=== PATIENT | male | born 1940 | race Caucasian/White ===

== ENCOUNTER 2017-08-03 20:35 | Inpatient (IN) | payer MEDICARE, OTHER ==
[~2017-08-03] VITALS: Ht 175.3 cm; Wt 71.9 kg
--- NOTE | ~2017-08-03 | PN ---
PATIENT:SUZAN LOU MEDICAL RECORD: [id number] LOCATION:DIDI Kee112 ADMISSION DATE: 08/03/17 PROGRESS NOTE DATE OF SERVICE: 08/10/2017 ADDENDUM Mr. Lou did undergo neuropsychological testing today. He scored a 12/30 on the [facility] Mental Status exam, which indicates a profound level of impairment and considerable dementia. TRANSINT:[id number] Voice Confirmation ID: [id number] DOCUMENT ID: [id number] ARELI LANDON III, MD at 0959 CC: [id number] DICTATION DATE: 08/10/17 1147 OUT PATIENT THERAPIST: 08/10/17 1503 ADM IN [facility] [address] [place] [address]
--- NOTE | ~2017-08-03 | DS ---
PATIENT:SUZAN MILLER :36 MEDICAL RECORD: [id number] DISCHARGE SUMMARY ADMISSION DATE: 08/03/17 DISCHARGE DATE: 08/23/17 DATE OF ADMISSION: 08/03/2017 DATE OF DISCHARGE: 08/23/2017 HISTORY OF PRESENT ILLNESS: This patient was referred from the Emergency Department at [facility] [place]. The patient had become increasingly depressed and actively suicidal according to his family. The patient had initially signed out against medical advice, but was brought back in. The family was very concerned that the patient would follow through and attempt to harm himself and therefore admission was requested. COURSE IN THE HOSPITAL: The patient was seen in consultation by Dr. Galloway. Dr. Galloway noted the presence of Parkinson disease, hypertension, hyperlipidemia, GERD, and osteoarthritis. The patient was treated conservatively from a psychiatric standpoint. He was placed on Effexor XR 150 mg daily for depressive symptoms. This was later changed to Lexapro 10 mg daily. The patient was also treated with Aricept 10 mg on a daily basis for his dementia symptoms. He was kept on a previous dose of Sinemet, Protonix, diltiazem, Zestril, Linzess, and Klonopin 0.5 mg b.i.d. Over the course of the hospitalization, the patient continued to show a great deal of confusion. He required frequent redirection because of this from time to time. He attempted to find a way out of the unit. On 08/20/2017, the patient had an unwitnessed fall in the day room. He subsequently complained of pain in the right hip and was found to have a right hip fracture. Orthopedics was consulted and decision was made to have the patient transferred for surgical intervention. FINAL DIAGNOSES: AXIS I: Alzheimer dementia with behavioral disturbance. AXIS II: No diagnosis. AXIS III: Acute closed right hip fracture, Parkinson disease, hypertension, osteoarthritis, and gastroesophageal reflux disease. AXIS IV: Moderate. AXIS V: 40. PLAN: The patient will be transferred to the surgical floor for surgical intervention for his hip fracture. TRANSINT:[id number] Voice Confirmation ID: [id number] DOCUMENT ID: [id number] ARELI LANDON III, MD at 1041 CC: [id number] DICTATION DATE: 09/03/17 1129 REPLENISHMENT ANALYST: 09/04/17 0949 DIS IN 08/23/[address] [facility] [address] [place] [address]
--- NOTE | ~2017-08-03 | PN ---
PATIENT:SUZAN MILLER MEDICAL RECORD: [id number] LOCATION:DIDI KennedyNithya112 ADMISSION DATE: 08/03/17 PROGRESS NOTE DATE OF SERVICE: 08/11/2017 SUBJECTIVE: The patient's case was discussed with staff. He has no new complaint. OBJECTIVE: The patient is in good behavioral control with limited insight about his condition. He was tested by Dr. Taina Boyer yesterday and scored 12/30 indicating a severe level of impairment. ASSESSMENT: No change in diagnoses. PLAN: Current medicines and therapies have been reviewed and will be maintained. Long-term prognosis is guarded. TRANSINT:[id number] Voice Confirmation ID: [id number] DOCUMENT ID: [id number] ROSALINO VARELA MD at 1341 CC: [id number] DICTATION DATE: 08/11/17 0933 FRAMER: 08/11/17 1446 ADM IN [place] [id number] [place] [id number]
--- NOTE | ~2017-08-03 | HP ---
PATIENT: SUZAN MILLER MEDICAL RECORD: [id number] ACCOUNT: [id number] LOCATION:DIDI Kee1126 : 36 ADMISSION DATE: 08/03/17 HISTORY AND PHYSICAL EXAMINATION INITIAL PSYCHIATRIC WORKUP IDENTIFYING DATA: This is the first [facility] admission for this 76-year-old white male. HISTORY OF PRESENT ILLNESS: This patient was seen twice yesterday at the Emergency Department at [facility]. His family had brought him in because he was becoming increasingly depressed and actively suicidal. On the initial visit to the Emergency Department, the patient had signed out against medical advice. Later in the day, he was brought back and on this occasion, agreed to admission at [facility]. The patient has a preexisting diagnosis of Alzheimer dementia as well as depression. He has already been treated with Aricept and Effexor. The patient also has a history of Parkinson disease. Family is quite concerned that the patient might try to harm himself. All firearms have been removed from the house. He is now admitted for stabilization and medication adjustment as indicated. PAST MEDICAL HISTORY: Parkinson disease, hypertension, GERD. FAMILY HISTORY: Noncontributory. SOCIAL HISTORY: The patient is single. His sister is actively involved in his care. No substance abuse issues noted. ALLERGIES: INCLUDE BETA-BLOCKERS. MEDICATIONS: At the time of admission included Aricept 10 mg q.h.s., Effexor XR 150 mg daily, diltiazem 240 mg daily, Sinemet 25/100 t.i.d., and Protonix 40 mg daily. MENTAL STATUS: On interview, the patient is clearly quite confused. His appearance is rather disheveled. He is dressed in hospital scrubs. His mood is somewhat anxious and perplexed. Affect is constricted. Speech is low in volume and slow in production and rate. The patient exhibits a poverty of content. Content of thought is strongly positive for recent suicidal ideation. On sensorium testing, the patient is oriented only to person. He does not realize that he is in [place] and does not know the name of this hospital. Remote, intermediate, and short-term recall all show very significant impairment. Insight is very limited. DIAGNOSTIC IMPRESSION: AXIS I: Alzheimer dementia with behavioral disturbance, secondary depression. AXIS II: No diagnosis. AXIS III: Parkinson disease, hypertension, and gastroesophageal reflux disease. AXIS IV: Severe. AXIS V: 38. HISTORY AND PHYSICAL [id number] SUZAN MILLER PLAN: 1. The patient is admitted for further medical and psychological workup. 2. Diet and activities as tolerated. 3. Coordinate with family regarding aftercare. TRANSINT:[id number] Voice Confirmation ID: [id number] DOCUMENT ID: [id number] ARELI LANDON III, MD at 0706 CC: [id number] DICTATION DATE: 08/04/17829 HUNTER SKIN DIVER: 08/04/17 1255 ADM IN [facility] [address] [place] [address]
--- NOTE | ~2017-08-03 | PN ---
PATIENT:SUZAN MILLER MEDICAL RECORD: [id number] LOCATION:DIDI Zimmerman ADMISSION DATE: 08/03/17 PROGRESS NOTE DATE OF SERVICE: 08/17/2017 SUBJECTIVE: No new complaint. OBJECTIVE: Staff has met with the patient's family. It appears that they will opt for placement at the [facility]. The patient has been doing well. No behavioral disturbance at all. On exam, mood is euthymic. Affect is very constricted. Speech is terse. Content of thought is negative for overt psychosis. Sensorium shows no change. ASSESSMENT: No change in diagnosis. PLAN: 1. Continue current medication. 2. Continue supportive therapy. TRANSINT:[id number] Voice Confirmation ID: [id number] DOCUMENT ID: [id number] ARELI LANDON III, MD at 0530 CC: [id number] DICTATION DATE: 08/17/17 1157 RADIO TIME SALESPERSON: 08/17/17 1302 ADM IN [facility] [address] [place] [address]
--- NOTE | ~2017-08-03 | PN ---
PATIENT:SUZAN MILLER MEDICAL RECORD: [id number] LOCATION:DIDI Zimmerman ADMISSION DATE: 08/03/17 PROGRESS NOTE DATE OF SERVICE: 08/06/2017 SUBJECTIVE: The patient states "I don't know who I'm and I don't know where I'm." On exam, the patient is perplexed and somewhat anxious. He states that he did not know he was in a hospital. When he was told that he was at [facility] in [facility], he said "Oh I live close by." However, the patient was unable to relate whether or not he had any relatives in town. He could not recall any details of the circumstances under which he was brought to the hospital. The patient's mood is anxious. Affect is rather brittle. Speech is tangential. Content of thought exhibits some grandiose ideation. The patient states that he has a quarter of a million dollars and that he does not know what to do with it. On sensorium testing, as mentioned, the patient is oriented clearly only to person. He continues to show global memory impairment. ASSESSMENT: No change in diagnosis. PLAN: 1. We will ask Dr. Boyer to evaluate. 2. We will continue current medication. 3. Continue supportive therapy. TRANSINT:[id number] Voice Confirmation ID: [id number] DOCUMENT ID: [id number] ARELI LANDON III, MD at 0814 CC: [id number] DICTATION DATE: 08/06/17 1103 EMERGENCY ROOM CLERK: 08/06/17 1240 ADM IN [facility] [address] [place] [address]
--- NOTE | ~2017-08-03 | PN ---
PATIENT:SUZAN MILLER MEDICAL RECORD: [id number] LOCATION:DIDI Zimmerman ADMISSION DATE: 08/03/17 PROGRESS NOTE DATE OF SERVICE: 08/22/2017 SUBJECTIVE: No new complaint. OBJECTIVE: The patient is stable. Family is supportive of the decision to have him remain on the senior living unit. The sister is unsure as to whether she wants to proceed with surgery. The patient has not been aggressive. On exam, mood is slightly anxious. Affect is shallow. Speech is tangential. Content of thought is negative for overt psychosis. Sensorium shows no change. ASSESSMENT: No change in diagnosis. PLAN: 1. Continue current medication. 2. Continue supportive therapy. TRANSINT:[id number] Voice Confirmation ID: [id number] DOCUMENT ID: [id number] ARELI LANDON III, MD at 1014 CC: [id number] DICTATION DATE: 08/22/17 1145 QUALITY IMPROVEMENT COORDINATOR: 08/22/17 1234 DIS IN 08/23/17 [place] [id number] [place] [address]
--- NOTE | ~2017-08-03 | PN ---
PATIENT:SUZAN MILLER MEDICAL RECORD: [id number] LOCATION:DIDI Zimmerman ADMISSION DATE: 08/03/17 PROGRESS NOTE DATE OF SERVICE: 08/08/2017 SUBJECTIVE: No new complaint. OBJECTIVE: Additional history was obtained by case management. The patient evidently had been an alcoholic for a number of years and had at times an aggressive personality. Family states that in fact since he has developed dementia, he is less hostile than he had been when he was younger. However, he is obviously extremely confused. The family is interested in pursuing placement. On exam, mood is slightly anxious. Affect is very shallow. Speech is rambling and tangential. Content of thought is negative for overt psychosis. Sensorium shows no improvement. ASSESSMENT: No change in diagnosis. PLAN: 1. Maintain current medication. 2. Continue supportive therapy. TRANSINT:[id number] Voice Confirmation ID: [id number] DOCUMENT ID: [id number] ARELI LANDON III, MD at 0847 CC: [id number] DICTATION DATE: 08/08/17 1113 AIR DEFENCE OFFICER: 08/08/17 1354 ADM IN [facility] [address] [place] [address]
--- NOTE | ~2017-08-03 | PN ---
PATIENT:SUZAN MILLER MEDICAL RECORD: [id number] LOCATION:DIDI Zimmerman ADMISSION DATE: 08/03/17 PROGRESS NOTE DATE OF SERVICE: 08/21/2017 SUBJECTIVE: No new complaint. OBJECTIVE: The patient suffered a hip fracture on the right side yesterday. Evidently, he slipped and fell in the day room. The fall was not observed by staff, but imaging studies did confirm an acute fracture. Orthopedics has been made aware of the situation and the patient will likely be transferred for surgery within 48 hours. On exam, mood is slightly anxious. The patient denies pain at the moment. Affect remains brittle. Speech is tangential and rambling. Content of thought exhibits delusional ideation as before. Sensorium is unchanged. ASSESSMENT: No change in diagnosis. PLAN: 1. We will continue to monitor the patient quite carefully here to prevent further falls. 2. Continue current medication. 3. Continue supportive therapy. TRANSINT:[id number] Voice Confirmation ID: [id number] DOCUMENT ID: [id number] ARELI LANDON III, MD at 1048 CC: [id number] DICTATION DATE: 08/21/17 1208 GUN TESTER: 08/21/17 1220 ADM IN [facility] [address] [place] [address]
--- NOTE | ~2017-08-03 | PN ---
PATIENT:SUZAN MILLER MEDICAL RECORD: [id number] LOCATION:DIDI Kee112 ADMISSION DATE: 08/03/17 PROGRESS NOTE DATE OF SERVICE: 08/14/2017 SUBJECTIVE: No new complaint. OBJECTIVE: The patient has continued to be fairly cooperative. Family is looking for placement. On exam, mood is euthymic. Affect constricted. Speech is terse. Content of thought focuses on somatic concerns. Sensorium is unchanged. ASSESSMENT: No change in diagnosis. PLAN: 1. Continue current medication. 2. Continue supportive therapy. TRANSINT:[id number] Voice Confirmation ID: [id number] DOCUMENT ID: [id number] ARELI LANDON III, MD at 1037 CC: [id number] DICTATION DATE: 08/14/17 1155 CIVIL LABORATORY TECHNICIAN: 08/14/17 1424 ADM IN [place] [address] [place] [address]
--- NOTE | ~2017-08-03 | PN ---
PATIENT:SUZAN MILLER MEDICAL RECORD: [id number] LOCATION:DIDI Zimmerman ADMISSION DATE: 08/03/17 PROGRESS NOTE DATE OF SERVICE: 08/20/2017 SUBJECTIVE: No new complaint. OBJECTIVE: Staff reports the patient is resistant to personal care. He has gone several days without bathing. He is becoming agitated from time to time. On exam, mood is euthymic. Affect is somewhat blank and constricted. Speech is rambling and nonsensical. Content of thought exhibits delusional ideation due to profound sensorium changes. Sensorium itself is unimproved. ASSESSMENT: No change in diagnoses. PLAN: 1. We will add Klonopin 0.5 mg b.i.d. 2. Continue other medications. 3. Continue supportive therapy. TRANSINT:[id number] Voice Confirmation ID: [id number] DOCUMENT ID: [id number] ARELI LANDON III, MD at 1048 CC: [id number] DICTATION DATE: 08/20/17 1157 JAVA SECURITY ARCHITECT: 08/20/17 1305 ADM IN [facility] [address] [place] [id number]
--- NOTE | ~2017-08-03 | PN ---
PATIENT:SUZAN MILLER MEDICAL RECORD: [id number] LOCATION:DIDI Zimmerman ADMISSION DATE: 08/03/17 PROGRESS NOTE DATE OF SERVICE: 08/16/2017 SUBJECTIVE: No new complaint. OBJECTIVE: The patient has not shown any agitation in the last 24 hours. Staff is meeting with the patient's sister regarding placement plans. On exam, mood is euthymic. Affect is pleasant. Speech is very terse. Content of thought is negative for overt psychosis. The patient remains quite confused. He states on interview that he needs to get to a meeting in [place]. The patient is oriented only to person with global memory impairment. ASSESSMENT: No change in diagnosis. PLAN: 1. Continue current medication. 2. Continue supportive therapy. TRANSINT:[id number] Voice Confirmation ID: [id number] DOCUMENT ID: [id number] ARELI LANDON III, MD at 0933 CC: [id number] DICTATION DATE: 08/16/17 1217 PANEL EDGE PAINTER: 08/16/17 1231 ADM IN [place] [id number] [place] [id number]
--- NOTE | ~2017-08-03 | PN ---
PATIENT:SUZAN MILLER MEDICAL RECORD: [id number] LOCATION:DIDI Zimmerman ADMISSION DATE: 08/03/17 PROGRESS NOTE DATE OF SERVICE: 08/15/2017 SUBJECTIVE: No new complaint. OBJECTIVE: The patient is sleeping well. He does tend to isolate. He remains delusional much of the time. Family is currently working on placement options. On exam, mood is euthymic. Affect very constricted. Speech is terse. Content of thought is positive for delusional ideation. Sensorium unchanged. ASSESSMENT: No change in diagnosis. PLAN: 1. Continue current medication. 2. Continue supportive therapy. TRANSINT:[id number] Voice Confirmation ID: [id number] DOCUMENT ID: [id number] ARELI LANDON III, MD at 1857 CC: [id number] DICTATION DATE: 08/15/17 1140 BLADE ALIGNER: 08/15/17 1255 ADM IN [facility] [address] [place] [address]
--- NOTE | ~2017-08-03 | PN ---
PATIENT:SUZAN MILLER MEDICAL RECORD: [id number] LOCATION:DIDI Kee112 ADMISSION DATE: 08/03/17 PROGRESS NOTE DATE OF SERVICE: 08/07/2017 SUBJECTIVE: No new complaint. OBJECTIVE: Psychological testing has been delayed by 1 day. Family will be meeting with case management today regarding placement recommendations. On exam, mood is slightly anxious. Affect is somewhat brittle. Speech is tangential. Content of thought is negative for clear cut psychosis. Sensorium shows no change. ASSESSMENT: No change in diagnosis. PLAN: 1. Continue current medication. 2. Continue supportive therapy. TRANSINT:[id number] Voice Confirmation ID: [id number] DOCUMENT ID: [id number] ARELI LANDON III, MD at 1016 CC: [id number] DICTATION DATE: 08/07/17 1129 MANAGER DATA CENTER: 08/07/17 1323 ADM IN [facility] [address] [place] [address]
--- NOTE | ~2017-08-03 | PN ---
PATIENT:SUZAN MILLER MEDICAL RECORD: [id number] LOCATION:DIDI Zimmerman ADMISSION DATE: 08/03/17 PROGRESS NOTE DATE OF SERVICE: 08/09/2017 SUBJECTIVE: No new complaint. OBJECTIVE: The patient continues to exhibit delusional ideation. He tells a long and convoluted story about how his is having an affair with someone and is trying to take all of his money. On exam, mood is somewhat perplexed. Affect is shallow. Speech is very garrulous and tangential. Content of thought exhibits paranoid delusional ideation. Sensorium shows no change. ASSESSMENT: No change in diagnosis. PLAN: 1. We will maintain current medication. 2. Continue supportive therapy. 3. Continue assisting with after-care plans. TRANSINT:[id number] Voice Confirmation ID: [id number] DOCUMENT ID: [id number] ARELI LANDON III, MD at 0535 CC: [id number] DICTATION DATE: 08/09/17 1013 SURVEYOR HELPER: 08/09/17 1440 ADM IN [facility] [address] [place] [id number]
--- NOTE | ~2017-08-03 | PN ---
PATIENT:SUZAN MILLER MEDICAL RECORD: [id number] LOCATION:DIDI Zimmerman ADMISSION DATE: 08/03/17 PROGRESS NOTE DATE OF SERVICE: 08/23/2017 SUBJECTIVE: The patient's case was discussed with staff. He has no new complaint. OBJECTIVE: The patient is in good behavioral control with limited insight about his condition. He tolerates his medicines well. ASSESSMENT: No change in diagnoses. PLAN: Current medicines and therapies have been reviewed and will be maintained. Long-term prognosis is guarded. He is scheduled to have surgery on his broken hip this afternoon and will be discharged. TRANSINT:[id number] Voice Confirmation ID: [id number] DOCUMENT ID: [id number] ROSALINO VARELA MD at 1159 CC: [id number] DICTATION DATE: 08/23/17 1256 CHILDREN'S AIDE: 08/23/17 1313 DIS IN 08/23/17 [facility] [address] [place] [address]
--- NOTE | ~2017-08-03 | PN ---
PATIENT:SUZAN MILLER MEDICAL RECORD: [id number] LOCATION:DIDI Zimmerman ADMISSION DATE: 08/03/17 PROGRESS NOTE DATE OF SERVICE: 08/13/2017 SUBJECTIVE: No new complaint offered. OBJECTIVE: The patient is fairly cooperative, but can only follow 1-step commands. He seems confused and disoriented much of the time. On exam, mood is euthymic. Affect is very constricted. Speech is quite terse. Content of thought is negative for overt psychosis. Sensorium is unchanged. ASSESSMENT: No change in diagnosis. PLAN: 1. Maintain current medication. 2. Continue supportive therapy. TRANSINT:[id number] Voice Confirmation ID: [id number] DOCUMENT ID: [id number] ARELI LANDON III, MD at 1053 CC: [id number] DICTATION DATE: 08/13/17 1032 TORCH SHEARER: 08/13/17 1129 ADM IN [facility] [address] [place] [address]
--- NOTE | ~2017-08-03 | PN ---
PATIENT:SUZAN MILLER MEDICAL RECORD: [id number] LOCATION:DIDI Zimmerman ADMISSION DATE: 08/03/17 PROGRESS NOTE DATE OF SERVICE: 08/10/2017 SUBJECTIVE: No new complaint. OBJECTIVE: The patient did undergo neuropsychological testing with Dr. Boyer today. On exam, the patient is somewhat dour. He does not converse much. Mood appears dysphoric. Affect is constricted. Speech is very terse. Content of thought is negative for active suicidal ideation. Sensorium shows no change. ASSESSMENT: No change in diagnosis. PLAN: 1. Maintain current medication. 2. Continue supportive therapy. 3. Continue to coordinate with family regarding aftercare. TRANSINT:[id number] Voice Confirmation ID: [id number] DOCUMENT ID: [id number] ARELI LANDON III, MD at 0959 CC: [id number] DICTATION DATE: 08/10/17 1113 SALES ATTENDANT BUILDING MATERIALS: 08/10/17 1500 ADM IN [facility] [address] [place] [address]
[2017-08-03] MEDS ORDERED: ACETAMINOPHEN325 MG PO (21:34)
[2017-08-03] MEDS ORDERED: SINEMET 25-1001 EACH PO (21:35)
[2017-08-03] MEDS ORDERED: CARDIZEM CD240 MG PO (21:36)
[2017-08-03] MEDS ORDERED: ARICEPT10 MG PO (21:37)
[2017-08-03] MEDS ORDERED: HEPARIN SOD5000 U/ML IV (21:38)
[2017-08-03] MEDS ORDERED: ZOFRAN4 MG PO (21:40)
[2017-08-03] MEDS ORDERED: PROTONIX40 MG PO (21:41)
[2017-08-03] MEDS ORDERED: EFFEXOR XR150 MG PO (21:41)
[2017-08-04 03:51] VITALS: BP 130/84; BMI 23.5
[2017-08-04 08:31] LABS: BASOPHILS 0.2 % (0-2); EOSINOPHILS 0.7 % (0-7); HEMATOCRIT 40.9 % (42.0-54.0); HEMOGLOBIN 13.5 g/dL (13.5-17.5); IMMATURE GRANULOCYTES 0.2 % (0-5); LYMPHOCYTES 23.1 % (15-50); MCV 93.8 fL (80.0-100.0); MEAN PLATELET VOLUME 10.4 fL (7.4-10.4); MONOCYTES 7.6 % (2-11); NEUTROPHILS 68.2 % (40-80); PLATELET COUNT 219 10x3/uL (130-400); RBC 4.36 10x6/uL (4.20-6.10); WBC 5.7 10x3/uL (4.8-10.8)
[2017-08-04 09:03] LABS: ALBUMIN 3.5 g/dL (3.4-5.0); ALKALINE PHOSPHATASE 68 U/L (46-116); ALT (SGPT) 20 U/L (10-68); CALC OSMOLALITY 290 mosm/kg (275-300); CALCIUM 8.9 mg/dL (8.5-10.1); CARBON DIOXIDE 28.3 mmol/L (21.0-32.0); CHLORIDE - SERUM 108 mmol/L (98-107); CHOL - HDL RATIO 4.3 ratio (2.3-4.9); CHOLESTEROL, TOTAL 217 mg/dL (0-200); GLUCOSE 90 mg/dL (74-106); HDL CHOLESTEROL 51 mg/dL (32-96); LDL CHOLESTEROL 150 mg/dL (0-100); LDL-HDL RATIO 2.9 ratio (1.5-3.5); POTASSIUM - SERUM 3.7 mmol/L (3.5-5.1); PROTEIN - SERUM 6.7 g/dL (6.4-8.2); SODIUM 145 mmol/L (136-145); TRIGLYCERIDE 82 mg/dL (30-200); UREA NITROGEN 19 mg/dL (7-18); eGFR NON AFRICAN AMERICAN 77 mL/min (90-120)
[2017-08-04 10:33] VITALS: BP 163/76
[2017-08-04 10:40] VITALS: BMI 23.4
[2017-08-04 19:42] VITALS: BP 119/66
[2017-08-05 07:00] VITALS: BP 171/79
[2017-08-05 19:36] VITALS: BP 132/63
[2017-08-06 07:47] VITALS: BP 122/62
[2017-08-06 10:12] LABS: VITAMIN D 25 HYDROXY 19.8 ng/mL (30.0-100.0)
[2017-08-06 12:12] LABS: FOLATE (FOLIC ACID) - SERUM 18.8 ng/mL (>3.0)
[2017-08-07 03:10] LABS: RAPID PLASMA REAGIN Non Reactive (Non Reactive)
[2017-08-07 07:25] VITALS: BP 170/74
[2017-08-07 11:22] LABS: APPEARANCE CLEAR (CLEAR); BILIRUBIN NEGATIVE (NEGATIVE); COLOR DK YELLOW (YELLOW); GLUCOSE NEGATIVE (NEGATIVE); KETONE NEGATIVE (NEGATIVE); NITRITE NEGATIVE (NEGATIVE); PROTEIN NEGATIVE (NEGATIVE); UROBILINOGEN NORMAL (NORMAL); WHITE CELLS - URINE 0-5 /hpf (0-5)
[2017-08-07 11:23] LABS: BACTERIA FEW /hpf (NONE SEEN); CALCIUM OXALATE CRYSTALS 0-5 /hpf (NONE SEEN); EPITHELIAL CELLS 0-5 /hpf (0-5); MUCUS >1+ /lpf (NONE SEEN)
[2017-08-07 20:20] VITALS: BP 134/68
[2017-08-08 08:24] VITALS: Ht 175.3 cm; Wt 71.9 kg
[2017-08-08 09:39] VITALS: BP 137/80
[2017-08-08 19:00] VITALS: BP 118/71
[2017-08-09 08:11] VITALS: BP 184/87
[2017-08-09 19:06] VITALS: BP 111/58
[2017-08-10 10:04] VITALS: BP 133/83
[2017-08-10 19:29] VITALS: BP 118/80
[2017-08-11 09:42] VITALS: BP 102/60
[2017-08-11 20:46] VITALS: BP 106/58
[2017-08-12 07:00] VITALS: BP 183/97
[2017-08-12 19:35] VITALS: BP 154/62
[2017-08-13 07:40] VITALS: BP 110/64
[2017-08-13 18:37] VITALS: BP 94/58
[2017-08-14 10:20] VITALS: BP 110/58
[2017-08-14 22:23] VITALS: BP 111/64
[2017-08-15 09:45] VITALS: BP 126/73
[2017-08-15 20:05] VITALS: BP 136/64
[2017-08-16 08:42] VITALS: BP 122/68
[2017-08-16 19:29] VITALS: BP 84/46
[2017-08-17 08:34] VITALS: BP 135/64
[2017-08-17 19:47] VITALS: BP 135/80
[2017-08-18 09:10] VITALS: BP 151/87
[2017-08-18 19:18] VITALS: BP 84/56
[2017-08-19 07:00] VITALS: BP 95/60
[2017-08-19 18:56] VITALS: BP 163/77
[2017-08-20 07:00] VITALS: BP 121/61
[2017-08-20 19:43] VITALS: BP 136/65
[2017-08-21 09:30] VITALS: BP 134/68
[2017-08-21 21:16] VITALS: BP 167/72
[2017-08-22 07:18] LABS: HEMATOCRIT 40.4 % (42.0-54.0); HEMOGLOBIN 13.4 g/dL (13.5-17.5); MCH 31.2 pg (26.0-34.0); MCHC 33.2 g/dL (31.0-37.0); MEAN PLATELET VOLUME 10.9 fL (7.4-10.4); RBC 4.3 10x6/uL (4.20-6.10); RDW 13.4 % (11.5-14.5); WBC 9.2 10x3/uL (4.8-10.8)
[2017-08-22 07:24] LABS: CALC OSMOLALITY 281 mosm/kg (275-300); CALCIUM 8.7 mg/dL (8.5-10.1); CARBON DIOXIDE 29.8 mmol/L (21.0-32.0); CHLORIDE - SERUM 105 mmol/L (98-107); CREATININE - SERUM 0.8 mg/dL (0.6-1.3); GLUCOSE 105 mg/dL (74-106); POTASSIUM - SERUM 3.7 mmol/L (3.5-5.1); SODIUM 141 mmol/L (136-145); UREA NITROGEN 15 mg/dL (7-18); eGFR NON AFRICAN AMERICAN > 90 mL/min (90-120)
[2017-08-22 07:35] LABS: INR 1.09 (0.85-1.17); PROTIME 13.7 SECONDS (11.6-15.0)
[2017-08-22 07:36] LABS: APTT 29.8 SECONDS (22.8-39.4)
[2017-08-22 10:40] VITALS: BP 136/76
[2017-08-22 19:45] VITALS: BP 111/71
[2017-08-23 09:06] VITALS: BP 164/68
== END 2017-08-23 14:52 | disposition short-term general hospital (02) | DRG 57 ==
LOC: D.PSYCH 20:35
PROVIDERS: Orthopaedic Surgery; Psychiatry & Neurology Psychiatry
DX: G30.9 Alzheimer's disease, unspecified (principal); S72.001A Fracture of unspecified part of neck of right femur, initial encounter for closed fracture; F02.81 Dementia in other diseases classified elsewhere, unspecified severity, with behavioral disturbance; R45.851 Suicidal ideations; G20 Parkinson's disease; F41.8 Other specified anxiety disorders; I10 Essential (primary) hypertension; K21.9 Gastro-esophageal reflux disease without esophagitis; E78.5 Hyperlipidemia, unspecified; M19.90 Unspecified osteoarthritis, unspecified site; E55.9 Vitamin D deficiency, unspecified; K59.00 Constipation, unspecified; W19.XXXA Unspecified fall, initial encounter; Y92.238 Other place in hospital as the place of occurrence of the external cause

== ENCOUNTER 2017-08-23 13:00 | Inpatient (IN) | payer MEDICARE ==
[~2017-08-23] VITALS: Ht 175.3 cm; Wt 65.9 kg
--- NOTE | ~2017-08-23 | OP ---
PATIENT NAME: SUZAN MILLER MEDICAL RECORD: [id number] :38 LOCATION:D.MS [id number] ADMISSION DATE:08/23/17 SURGEON: SUZAN RAZO MD DATE OF OPERATION: 08/24/2017 PREOPERATIVE DIAGNOSIS: Displaced right femoral neck fracture. POSTOPERATIVE DIAGNOSIS: Displaced right femoral neck fracture. PROCEDURE: Bipolar endoprosthetic replacement for displaced femoral neck fracture. SURGEON: Suzan Razo MD ANESTHESIA: General. INTRAOPERATIVE COMPLICATIONS: None. SUMMARY OF PATHOLOGIC FINDINGS: The patient had displaced femoral neck fracture consistent with the preoperative radiographs and CT scan. IMPLANTS USED: The Anato hip stem size 6, universal head bipolar size 52 outside diameter, size 26 mm inside diameter with a -3. ESTIMATED BLOOD LOSS: 100 cc. OPERATIVE SUMMARY IN DETAIL: After obtaining the appropriate preoperative orthopedic surgery consent as well as anesthetic consultation, evaluation and clearance, the patient was brought to the operating room and placed on the operating table in supine position. After adequate general laryngeal mask was administered, general endotracheal anesthesia was administered, the patient was placed in a left lateral decubitus position. All pressure points were well padded to include down leg peroneal pad as well as axillary roll. The patient was held firmly to the operating table using the vacuum pack suction system. Right lower extremity and hip were then prepped and draped in routine sterile fashion. A curvilinear incision was made over the greater trochanter, taken down the level of the IT band, was split in line with the fibers of the IT band to reveal the gluteus medius and minimus attachment to the greater trochanter, which were reflected anteriorly and saved for later reapproximation. The hip capsule was split in a T-type fashion and saved also for later reapproximation. Femoral neck cut was made using the Anato femoral neck cutting guide. This bone was cleared free. A corkscrew was then used to extract the femoral head. The femoral head was swept free of all bone fragments and irrigated. Attention was then turned to serial and sequential reaming and broaching of the proximal femur for a size 6 Anato stem. The size stem was put into place. Trials were undertaken. It was felt that the -3 on 52 was the most appropriate. A -3, 26 was articulated with a 52 bipolar head, tamped in place with the Tee taper. The hip was reduced, taken through range of motion and found to be stable in all planes. Wound was copiously irrigated at this multiple points during the case. Hip capsule was closed with #2 Ethibond followed by transosseous reapproximation of gluteus medius and minimus back to the greater trochanter with #5 Ethibond. IT band was closed with #5 Ethibond. This was then followed by #1 Vicryl, 2-0 Vicryl and skin ernst. Intraoperative radiographs were taken and showed good position and placement of all components with reestablishment of the patient's leg length discrepancy. Sterile dressings were applied. The patient was OPERATIVE REPORT [id number] SUZAN MILLER awakened, extubated, and taken to recovery room in stable condition. All final needle and sponge counts were correct. TRANSINT:[id number] Voice Confirmation ID: [id number] DOCUMENT ID: [id number] DUNG CHATMAN, SUZAN CAGE at 1624 CC: [id number] DICTATION DATE: 08/24/17 1205 DIRECTOR OF SOCIAL SERVICES: 08/24/17 1434 ADM IN [facility] [address] [place] [id number]
[~2017-08-23 13:00] MED LIST: ACETAMINOPHEN325 MG PO; ARICEPT10 MG PO; CARDIZEM CD240 MG PO; EFFEXOR XR150 MG PO; HEPARIN SOD5000 U/ML IV; PROTONIX40 MG PO; SINEMET 25-1001 EACH PO; ZOFRAN4 MG PO
[2017-08-23 16:15] VITALS: BP 116/77; BMI 21.4
[2017-08-23 16:23] LABS: BASOPHILS 0 % (0-2); EOSINOPHILS 0 % (0-7); HEMATOCRIT 40.3 % (42.0-54.0); HEMOGLOBIN 13.4 g/dL (13.5-17.5); IMMATURE GRANULOCYTES 0.4 % (0-5); LYMPHOCYTES 3.5 % (15-50); MCH 31.3 pg (26.0-34.0); MCHC 33.3 g/dL (31.0-37.0); MCV 94.2 fL (80.0-100.0); MONOCYTES 4.8 % (2-11); NEUTROPHILS 91.3 % (40-80); PLATELET COUNT 187 10x3/uL (130-400); RBC 4.28 10x6/uL (4.20-6.10); RDW 13.7 % (11.5-14.5); WBC 16.3 10x3/uL (4.8-10.8)
[2017-08-23 16:34] LABS: CALC OSMOLALITY 290 mosm/kg (275-300); CALCIUM 9.1 mg/dL (8.5-10.1); CARBON DIOXIDE 28.7 mmol/L (21.0-32.0); CHLORIDE - SERUM 107 mmol/L (98-107); CREATININE - SERUM 0.9 mg/dL (0.6-1.3); GLUCOSE 129 mg/dL (74-106); POTASSIUM - SERUM 3.8 mmol/L (3.5-5.1); SODIUM 143 mmol/L (136-145); eGFR NON AFRICAN AMERICAN 87 mL/min (90-120)
[2017-08-23 16:39] LABS: UREA NITROGEN 24 mg/dL (7-18)
[2017-08-23 17:20] VITALS: Ht 175.3 cm; Wt 65.9 kg
[2017-08-23 19:42] VITALS: BP 137/57
[2017-08-24 04:30] VITALS: BP 118/85
[2017-08-24 08:44] VITALS: BP 145/70
[2017-08-24 13:40] VITALS: BP 144/70
[2017-08-24 16:00] VITALS: BP 134/74
[2017-08-24 16:54] VITALS: BP 122/69
[2017-08-24 19:37] VITALS: BP 138/86
[2017-08-24 23:50] LABS: APPEARANCE HAZY (CLEAR); BACTERIA NONE SEEN /hpf (NONE SEEN); BILIRUBIN NEGATIVE (NEGATIVE); COLOR YELLOW (YELLOW); EPITHELIAL CELLS NSEEN /hpf (0-5); GLUCOSE NEGATIVE (NEGATIVE); KETONE SMALL mg/dL (NEGATIVE); NITRITE NEGATIVE (NEGATIVE); PROTEIN NEGATIVE (NEGATIVE); UROBILINOGEN NORMAL (NORMAL); WHITE CELLS - URINE 0-5 /hpf (0-5)
[2017-08-25] VITALS (7 sets, daily range): BP systolic 106–139; BP diastolic 62–86
[2017-08-25 06:03] LABS: HEMATOCRIT 36.6 % (42.0-54.0); HEMOGLOBIN 11.8 g/dL (13.5-17.5); MCH 30.6 pg (26.0-34.0); MCHC 32.2 g/dL (31.0-37.0); MCV 94.8 fL (80.0-100.0); MEAN PLATELET VOLUME 10.7 fL (7.4-10.4); RBC 3.86 10x6/uL (4.20-6.10); RDW 13.7 % (11.5-14.5)
[2017-08-25 06:08] LABS: WBC 11.1 10x3/uL (4.8-10.8)
[2017-08-26 03:58] VITALS: BP 109/85
[2017-08-26 06:20] LABS: HEMATOCRIT 33.2 % (42.0-54.0); HEMOGLOBIN 10.5 g/dL (13.5-17.5); MCH 30.7 pg (26.0-34.0); MCHC 31.6 g/dL (31.0-37.0); MEAN PLATELET VOLUME 10.3 fL (7.4-10.4); PLATELET COUNT 212 10x3/uL (130-400); RBC 3.42 10x6/uL (4.20-6.10); RDW 13.8 % (11.5-14.5); WBC 8.6 10x3/uL (4.8-10.8)
[2017-08-26 06:25] LABS: MCV 97.1 fL (80.0-100.0)
[2017-08-26 08:27] VITALS: BP 141/78
[2017-08-26 11:34] VITALS: BP 142/73
[2017-08-26 12:38] LABS: BASOPHILS 0.1 % (0-2); IMMATURE GRANULOCYTES 0.1 % (0-5); LYMPHOCYTES 10.4 % (15-50); MONOCYTES 10.3 % (2-11); NEUTROPHILS 78.1 % (40-80)
[2017-08-26 12:43] LABS: CALC OSMOLALITY 292 mosm/kg (275-300); CALCIUM 8.1 mg/dL (8.5-10.1); CARBON DIOXIDE 29.8 mmol/L (21.0-32.0); CHLORIDE - SERUM 108 mmol/L (98-107); CREATININE - SERUM 0.8 mg/dL (0.6-1.3); GLUCOSE 102 mg/dL (74-106); POTASSIUM - SERUM 3.6 mmol/L (3.5-5.1); SODIUM 145 mmol/L (136-145); UREA NITROGEN 25 mg/dL (7-18); eGFR NON AFRICAN AMERICAN > 90 mL/min (90-120)
[2017-08-26 16:09] VITALS: BP 138/117
[2017-08-26 19:59] VITALS: BP 127/84
[2017-08-27 04:30] VITALS: BP 123/63
[2017-08-27 08:56] VITALS: BP 153/74
[2017-08-27 12:22] VITALS: BP 120/57
[2017-08-27 17:17] VITALS: BP 140/64
[2017-08-27 20:41] VITALS: BP 137/67
[2017-08-28 00:32] VITALS: BP 148/68
[2017-08-28 04:42] VITALS: BP 145/90
[2017-08-28 08:21] VITALS: BP 164/79
[2017-08-28 13:11] VITALS: BP 114/95
[2017-08-28 16:19] VITALS: BP 99/72
[2017-08-28 21:01] VITALS: BP 127/85
[2017-08-29 04:00] VITALS: BP 131/65
[2017-08-29 08:08] VITALS: BP 152/74
[2017-08-29 12:41] VITALS: BP 102/61
[2017-08-29] MEDS ORDERED: ELIQUIS2.5 MG PO (13:37)
== END 2017-08-29 16:15 | DRG 469 ==
LOC: D.MS 13:00
PROVIDERS: Family Medicine; Legal Medicine; Orthopaedic Surgery
PROC: 0SRR0JZ Replacement of Right Hip Joint, Femoral Surface with Synthetic Substitute, Open Approach (ICD-10-PCS; principal; 2017-08-24 10:45)
DX: S72.001A Fracture of unspecified part of neck of right femur, initial encounter for closed fracture (principal); J18.9 Pneumonia, unspecified organism; F02.81 Dementia in other diseases classified elsewhere, unspecified severity, with behavioral disturbance; R44.3 Hallucinations, unspecified; R45.851 Suicidal ideations; W19.XXXA Unspecified fall, initial encounter; G30.9 Alzheimer's disease, unspecified; G20 Parkinson's disease; I10 Essential (primary) hypertension; E78.5 Hyperlipidemia, unspecified; F41.8 Other specified anxiety disorders; E55.9 Vitamin D deficiency, unspecified; R33.9 Retention of urine, unspecified; K59.00 Constipation, unspecified; Z87.891 Personal history of nicotine dependence; F32.9 Major depressive disorder, single episode, unspecified

== ENCOUNTER 2017-09-03 22:40 | Inpatient (IN) | payer MEDICARE ==
--- NOTE | ~2017-09-03 | PN ---
PATIENT:SUZAN MILLER MEDICAL RECORD: [id number] LOCATION:[facility] ADMISSION DATE: 09/03/17 PROGRESS NOTE DATE OF SERVICE: 09/07/2017 SUBJECTIVE: The patient offers no new complaint today. OBJECTIVE: The patient has improved considerably over the last several days. He is quite pleasant in his interaction with staff. He acknowledges that he had some problems with his hip, but does not focus on it much. Appetite is good. On exam, mood is euthymic. Affect is bland. Speech is tangential. Content of thought focuses primarily only on somatic concerns. Sensorium shows no change. ASSESSMENT: No change in diagnosis. PLAN: 1. Maintain current medication. 2. Continue supportive therapy. TRANSINT:[id number] Voice Confirmation ID: [id number] DOCUMENT ID: [id number] ARELI LANDON III, MD at 0553 CC: [id number] DICTATION DATE: 09/07/17 1418 LAND COMMISSIONER: 09/07/17 1442 ADM IN [place] [id number] [place] [address]
--- NOTE | ~2017-09-03 | PN ---
PATIENT:SUZAN MILLER MEDICAL RECORD: [id number] LOCATION:[facility] ADMISSION DATE: 09/03/17 PROGRESS NOTE DATE OF SERVICE: 09/13/2017 SUBJECTIVE: No new complaint. OBJECTIVE: Arrangements have been made for patient's discharge today. The patient is currently stable and tolerating medications. On exam, mood is euthymic. Affect is reserved. Speech is terse. Content of thought is unchanged. Sensorium unchanged. ASSESSMENT: No change in diagnosis. PLAN: The patient is to [facility] with followup through the primary care physician. TRANSINT:[id number] Voice Confirmation ID: [id number] DOCUMENT ID: [id number] ARELI LANDON III, MD at 1912 CC: [id number] DICTATION DATE: 09/13/17 1031 TUBE COREMAKER: 09/13/17 1109 DIS IN 09/13/[address] [facility] [address] [place] [address]
--- NOTE | ~2017-09-03 | PN ---
PATIENT:SUZAN MILLER MEDICAL RECORD: [id number] LOCATION:[facility] ADMISSION DATE: 09/03/17 PROGRESS NOTE DATE OF SERVICE: 09/06/2017 SUBJECTIVE: The patient's case was discussed with staff. He has no new complaint. OBJECTIVE: The patient denies intent to harm himself or others. He generally tolerates his medicines well. ASSESSMENT: No change in diagnoses. PLAN: Current medicines have been reviewed. I am going to stop his Sinemet. I do not see evidence of Parkinson's disease. I have already reduced the dose and see no evidence of symptoms. I am concerned that the Sinemet as a dopamine agonist may be disorganizing his thought processes. In addition to that, I am going to change him from hydrocodone to Ultram for pain relief. I think, after a few days of p.r.n. Ultram, he could certainly be changed to just a nonsteroidal. The goal is to reduce the medications as much as reasonably possible and those that he needs to the lowest dose possible as I think fair amount of his confusion is related to polypharmacy. He clearly is going to need longterm placement and 24-hour daycare. He is certainly much calmer and appropriate today even though he is cognitively not intact. TRANSINT:[id number] Voice Confirmation ID: [id number] DOCUMENT ID: [id number] ROSALINO VARELA MD at 1434 CC: [id number] DICTATION DATE: 09/06/17 1347 REGISTRAR COLLEGE OR UNIVERSITY: 09/06/17 1415 DIS IN 09/13/17 [place] [id number] [place] [id number]
--- NOTE | ~2017-09-03 | PN ---
PATIENT:SUZAN MILLER MEDICAL RECORD: [id number] LOCATION:[facility] ADMISSION DATE: 09/03/17 PROGRESS NOTE DATE OF SERVICE: 09/11/2017 SUBJECTIVE: No new complaint. OBJECTIVE: The patient is overall better. His appetite is good. He is feeding himself. His ernst have been removed. He is taking medications as prescribed. [place] assessment is pending. On exam, mood more or less euthymic. Affect remains constricted. Speech is tangential. Content of thought is negative for overt psychosis. Sensorium shows no change. ASSESSMENT: No change in diagnosis. PLAN: 1. Continue present medication. 2. Continue supportive therapy. TRANSINT:[id number] Voice Confirmation ID: [id number] DOCUMENT ID: [id number] ARELI LANDON III, MD at 1019 CC: [id number] DICTATION DATE: 09/11/17 1144 SALESPERSON MEN'S FURNISHINGS: 09/11/17 1155 ADM IN [place] [id number] [place] [id number]
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
--- NOTE | ~2017-09-03 | PN ---
PATIENT:SUZAN MILLER MEDICAL RECORD: [id number] LOCATION:[facility] ADMISSION DATE: 09/03/17 PROGRESS NOTE DATE OF SERVICE: 09/05/2017 SUBJECTIVE: The patient's case was discussed with staff. He has no new complaint. OBJECTIVE: The patient is in good behavioral control with limited insight about his condition. He does tolerate his medicines well. Eye contact is fair. Concentration is fair. ASSESSMENT: No change in diagnoses. PLAN: Brief supportive and educational interventions were made. Long-term prognosis is guarded. The patient unfortunately fell out of bed this morning. He was not injured. He continues to believe that he can operate or function in a way that is not correct. He will listen and agree when he is told not to get up without assistance, but then he just forgets. I think he is in extremely high fall risk. His prognosis is extremely poor given the fact that even in a highly structured environment, he cannot be one-to-one every moment of the day and that is not a long-term solution. I will continue to emphasize to him that he cannot walk without assistance and hopefully he will be able to comply with this request. TRANSINT:[id number] Voice Confirmation ID: [id number] DOCUMENT ID: [id number] ROSALINO VARELA MD at 1326 CC: [id number] DICTATION DATE: 09/05/17 1406 SPRING FORMER HAND: 09/05/17 1423 ADM IN [place] [id number] [place] [address]
--- NOTE | ~2017-09-03 | PN ---
PATIENT:SUZAN MILLER MEDICAL RECORD: [id number] LOCATION:[facility] ADMISSION DATE: 09/03/17 PROGRESS NOTE DATE OF SERVICE: 09/12/2017 SUBJECTIVE: No new complaint. OBJECTIVE: The patient has been doing well over the last 24 hours. No new problems noted. Tolerating medications well. On exam, mood is euthymic. Affect constricted. Speech is tangential. Content of thought unchanged. Sensorium unchanged. ASSESSMENT: No change in diagnosis. PLAN: 1. Continue current medication. 2. Continue supportive therapy. 3. Anticipate discharge tomorrow. TRANSINT:[id number] Voice Confirmation ID: [id number] DOCUMENT ID: [id number] ARELI LANDON III, MD at 1829 CC: [id number] DICTATION DATE: 09/12/17 1113 TRAMPOLINE TEAM COACH: 09/12/17 1132 ADM IN [facility] [address] [place] [id number]
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
[~2017-09-03 22:40] MED LIST changes: +ELIQUIS2.5 MG PO
[2017-09-04 00:23] VITALS: BP 115/62
[2017-09-04] MEDS ORDERED: CARDIZEM LA240 MG PO (01:22)
[2017-09-04] MEDS ORDERED: C-500500 MG PO (01:28)
[2017-09-04] MEDS ORDERED: VIC-FORTE CAPSUL1 MG PO (01:29)
[2017-09-04] MEDS ORDERED: ACIDOPHILUS LAC1 CAP PO (01:31)
[2017-09-04] MEDS ORDERED: SENNA PLUS TA1 UDTAB PO (01:32)
[2017-09-04 08:10] LABS: BASOPHILS 0.2 % (0-2); EOSINOPHILS 1.7 % (0-7); HEMOGLOBIN 9.9 g/dL (13.5-17.5); IMMATURE GRANULOCYTES 0.5 % (0-5); LYMPHOCYTES 12.3 % (15-50); MCH 29.7 pg (26.0-34.0); MCHC 31.9 g/dL (31.0-37.0); MCV 93.1 fL (80.0-100.0); MEAN PLATELET VOLUME 9.8 fL (7.4-10.4); MONOCYTES 8.2 % (2-11); NEUTROPHILS 77.1 % (40-80); RBC 3.33 10x6/uL (4.20-6.10); RDW 13.1 % (11.5-14.5); WBC 10.4 10x3/uL (4.8-10.8)
[2017-09-04 08:13] LABS: PLATELET COUNT 424 10x3/uL (130-400)
[2017-09-04 08:43] LABS: ALBUMIN 1.9 g/dL (3.4-5.0); ALKALINE PHOSPHATASE 154 U/L (46-116); ALT (SGPT) 26 U/L (10-68); CALC OSMOLALITY 291 mosm/kg (275-300); CALCIUM 7.8 mg/dL (8.5-10.1); CARBON DIOXIDE 29.7 mmol/L (21.0-32.0); CHLORIDE - SERUM 110 mmol/L (98-107); CHOL - HDL RATIO 3.9 ratio (2.3-4.9); CHOLESTEROL, TOTAL 126 mg/dL (0-200); GLUCOSE 98 mg/dL (74-106); HDL CHOLESTEROL 32 mg/dL (32-96); LDL CHOLESTEROL 85 mg/dL (0-100); LDL-HDL RATIO 2.7 ratio (1.5-3.5); POTASSIUM - SERUM 3.4 mmol/L (3.5-5.1); PROTEIN - SERUM 5.1 g/dL (6.4-8.2); SODIUM 147 mmol/L (136-145); TRIGLYCERIDE 49 mg/dL (30-200); UREA NITROGEN 13 mg/dL (7-18)
[2017-09-04 08:45] LABS: CREATININE - SERUM 0.8 mg/dL (0.6-1.3); eGFR NON AFRICAN AMERICAN > 90 mL/min (90-120)
[2017-09-04 09:33] VITALS: BP 133/56
[2017-09-04 14:25] VITALS: Ht 175.3 cm
[2017-09-04 20:42] VITALS: BP 120/70
[2017-09-05 07:30] LABS: RAPID PLASMA REAGIN Non Reactive (Non Reactive)
[2017-09-05 08:23] LABS: FOLATE (FOLIC ACID) - SERUM 10.3 ng/mL (>3.0)
[2017-09-05 10:22] LABS: VITAMIN D 25 HYDROXY 33.6 ng/mL (30.0-100.0)
[2017-09-05 11:57] VITALS: BP 158/78
[2017-09-05 19:45] VITALS: BP 128/64
[2017-09-06 07:30] VITALS: BP 124/68
[2017-09-06 15:11] LABS: APPEARANCE HAZY (CLEAR); COLOR DK YELLOW (YELLOW)
[2017-09-06 15:13] LABS: BILIRUBIN NEGATIVE (NEGATIVE); GLUCOSE NEGATIVE (NEGATIVE); KETONE NEGATIVE (NEGATIVE); NITRITE NEGATIVE (NEGATIVE); PROTEIN NEGATIVE (NEGATIVE); UROBILINOGEN NORMAL (NORMAL)
[2017-09-06 19:24] VITALS: BP 105/62
[2017-09-07 08:12] VITALS: BP 114/61
[2017-09-07 19:41] VITALS: BP 97/45
[2017-09-08 08:03] VITALS: BP 105/59
[2017-09-08 19:09] VITALS: BP 119/63
[2017-09-09 08:24] VITALS: BP 108/55
[2017-09-09 19:09] VITALS: BP 149/75
[2017-09-10 10:28] VITALS: BP 146/75
[2017-09-10 20:21] VITALS: BP 106/48
[2017-09-11 10:15] VITALS: BP 150/71
[2017-09-11 19:38] VITALS: BP 106/49
[2017-09-12 08:31] VITALS: BP 126/64
[2017-09-12 19:32] VITALS: BP 117/60
[2017-09-13 08:10] VITALS: BP 154/63
== END 2017-09-13 14:35 | DRG 57 ==
LOC: D.PSYCH 22:40
PROVIDERS: Psychiatry & Neurology Psychiatry
DX: G30.1 Alzheimer's disease with late onset (principal); F02.81 Dementia in other diseases classified elsewhere, unspecified severity, with behavioral disturbance; F32.9 Major depressive disorder, single episode, unspecified; F41.8 Other specified anxiety disorders; G20 Parkinson's disease; I10 Essential (primary) hypertension; M19.90 Unspecified osteoarthritis, unspecified site; E78.5 Hyperlipidemia, unspecified; K21.9 Gastro-esophageal reflux disease without esophagitis; E55.9 Vitamin D deficiency, unspecified; K59.00 Constipation, unspecified; R33.9 Retention of urine, unspecified; Z74.09 Other reduced mobility; W19.XXXA Unspecified fall, initial encounter; Y92.239 Unspecified place in hospital as the place of occurrence of the external cause